=== PATIENT | female | born 1935 ===

== ENCOUNTER → 2016-08-30 | Outpatient (CLI) | payer MEDICARE, MEDICAID | LOC: BFHH 12:44 | DX: I21.3 ST elevation (STEMI) myocardial infarction of unspecified site (principal); I10 Essential (primary) hypertension; I50.9 Heart failure, unspecified ==

== ENCOUNTER → 2017-10-19 | Outpatient (CLI) | payer MEDICARE, MEDICAID | LOC: BFHH 09:36 | PROVIDERS: ATTEND Family Medicine | DX: D51.9 Vitamin B12 deficiency anemia, unspecified (principal); I48.91 Unspecified atrial fibrillation; E11.9 Type 2 diabetes mellitus without complications; I50.9 Heart failure, unspecified; I11.0 Hypertensive heart disease with heart failure; Z79.01 Long term (current) use of anticoagulants ==

== ENCOUNTER 2018-05-06 14:57 | Emergency (ER) | payer MEDICARE, MEDICAID ==
[2018-05-06 15:11] VITALS: TEMP 98
--- NOTE | 2018-05-06 15:34 | ED.PDOC ---
History of Present Illness - General Chief Complaint: Cardiovascular Problem Stated Complaint: BLE swelling Time Seen by Provider: 05/06/18 15:13 Source: RN notes reviewed, Vital Signs reviewed, EMS notes reviewed, family Additional Information: 82 YEAR OLD LADY WHO RESIDES AT [facility] BROUGHT HERE FOR EVALUATION OF [place] SWELLING OF BOTH LOWER EXTREMITIES SHE IS ON DIURETIC PATIENT DENIES CHEST PAIN SHORTNESS OF BREATH AT THIS TIME FAMILY THE DAUGHTER WITH HER WANT S TO RUE OUT ELECTROLYTE DISORDER - History of Present Illness Timing/Duration: 1 week Severity: mild Activities at Onset: none Prior Chest Pain/Cardiac Workup: heart attack Improving Factors: nothing Worsening Factors: nothing Allergies/Adverse Reactions: Allergies Hydromorphone [From Dilaudid] Allergy (Verified 05/06/18 15:14) Unknown Sulfa Antibiotics Allergy (Verified 05/06/18 15:14) Unknown Codeine Adverse Reaction (Verified 05/06/18 15:14) Other Itching Home Medications: Ambulatory Orders ALPRAZolam [Xanax] 0.25 mg PO BID 05/06/18 Amiodarone HCl [Amiodarone HCl] 200 mg PO DAILY 05/06/18 Clopidogrel Bisulfate [Plavix] 75 mg PO DAILY 05/06/18 Escitalopram [Lexapro] 10 mg PO DAILY 05/06/18 Escitalopram [Lexapro] 10 mg PO DAILY 05/06/18 Furosemide Tab [Lasix Tab] 40 mg PO .Q1400 05/06/18 Furosemide Tab [Lasix Tab] 60 mg PO DAILY 05/06/18 Insulin, Reg.(Human) [Insulin Regular A/S] 0 unit SUBCU ACHS PRN 05/06/18 Levothyroxine Sodium [Synthroid] 100 mcg PO DAILY 05/06/18 Metoprolol Tartrate [Lopressor] 25 mg PO DAILY 05/06/18 Potassium Chloride [Potassium Chloride ER] 8 meq PO BID 05/06/18 Ranolazine [Ranexa] 500 mg PO BID 05/06/18 Simvastatin [Simvastatin] 20 mg PO BEDTIME 05/06/18 Tramadol HCl [Tramadol HCl] 50 mg PO TID PRN 05/06/18 Warfarin Sodium [Warfarin Sodium] 1 mg PO .QEVENING 05/06/18 glipiZIDE [Glucotrol] 5 mg PO DAILY 05/06/18 Review of Systems - Review of Systems Constitutional: States: no symptoms reported EENTM: States: no symptoms reported Respiratory: States: no symptoms reported Cardiology: States: no symptoms reported Gastrointestinal/Abdominal: States: no symptoms reported Genitourinary: States: no symptoms reported Musculoskeletal: States: no symptoms reported Skin: States: no symptoms reported Neurological: States: no symptoms reported Endocrine: States: no symptoms reported Hematologic/Lymphatic: States: no symptoms reported Family Medical History - Family History Mother Family History: No Known Living Status: Cause of : Old age Physical Exam - Physical Exam General Appearance: Alert, Comfortable Eyes, Ears, Nose, Throat Exam: PERRL/EOMI, normal ENT inspection, TMs normal Neck: non-tender, full range of motion, supple Respiratory: chest non-tender, lungs clear, normal breath sounds Cardiovascular/Chest: normal peripheral pulses, regular rate, rhythm, no edema, JVD Gastrointestinal/Abdominal: normal bowel sounds, non tender, soft, no organomegaly Extremity: pedal edema, swelling 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 tested, no motor/sensory deficits, alert, normal mood/affect, oriented x 3 Skin Exam: normal color Progress - Results/Orders Results/Orders: Laboratory Tests 05/06/18 05/06/18 05/06/18 15:14 15:14 15:14 WBC 8.1 RBC 4.13 L Hgb 9.6 L Hct 30.9 L MCV 74.8 L MCH 23.2 L MCHC 30.9 L RDW 19.0 H Plt Count 253 MPV 8.1 Absolute Neuts (auto) 6.20 Absolute Lymphs (auto) 0.70 L Absolute Monos (auto) 1.10 H Absolute Eos (auto) 0.10 Absolute Basos (auto) 0.10 Neutrophils % 76.7 Lymphocytes % 8.0 L Monocytes % 13.1 H Eosinophils % 0.8 L Basophils % 1.4 PT 11.8 H INR 1.18 H PTT (SP) 24.9 Sodium 131 L Potassium 4.3 Chloride 90 L Carbon Dioxide 33 H Anion Gap 12.3 BUN 25 H Creatinine 1.35 H BUN/Creatinine Ratio 18.5 Random Glucose 304 H Serum Osmolality 278.5 Calcium 8.4 Total Bilirubin 0.9 AST 12 ALT 12 Alkaline Phosphatase 176 H B-Natriuretic Peptide Serum Total Protein 6.3 L Albumin 3.1 L Globulin 3.2 Albumin/Globulin Ratio 1.0 L Urine Color Urine Appearance Urine pH Ur Specific [place] Urine Protein Urine Glucose (UA) Urine Ketones Urine Blood Urine Nitrite Urine Bilirubin Urine Urobilinogen Ur Leukocyte Esterase Urine RBC Urine WBC Ur Epithelial Cells Urine Bacteria 05/06/18 05/06/18 15:15 16:20 WBC RBC Hgb Hct MCV MCH MCHC RDW Plt Count MPV Absolute Neuts (auto) Absolute Lymphs (auto) Absolute Monos (auto) Absolute Eos (auto) Absolute Basos (auto) Neutrophils % Lymphocytes % Monocytes % Eosinophils % Basophils % PT INR PTT (SP) Sodium Potassium Chloride Carbon Dioxide Anion Gap BUN Creatinine BUN/Creatinine Ratio Random Glucose Serum Osmolality Calcium Total Bilirubin AST ALT Alkaline Phosphatase B-Natriuretic Peptide 836.0 H* Serum Total Protein Albumin Globulin Albumin/Globulin Ratio Urine Color Yellow Urine Appearance Clear Urine pH 7.0 Ur Specific [place] 1.015 Urine Protein Trace Urine Glucose (UA) 100 H Urine Ketones Negative Urine Blood Moderate H Urine Nitrite Negative Urine Bilirubin Negative Urine Urobilinogen 1.0 Ur Leukocyte Esterase Small H Urine RBC 5-10 H Urine WBC 10-20 H Ur Epithelial Cells 3-5 Urine Bacteria Rare chest x ray no pulmonary edema ekg Afib contolled ventricular response no ischemia no infarction Departure - Departure Clinical Impression: Congestive heart failure, Iron deficiency anemia Time of Disposition: 17:04 Disposition: Discharge to SNF Departure Forms: ED Discharge - Pt. Copy, Patient Portal Self Enrollment Instructions: DI for Chest Pain Referrals: MITA LEONARD [Primary Care Provider] - 1-2 Weeks Home Medications: Ambulatory Orders ALPRAZolam [Xanax] 0.25 mg PO BID 05/06/18 Amiodarone HCl [Amiodarone HCl] 200 mg PO DAILY 05/06/18 Clopidogrel Bisulfate [Plavix] 75 mg PO DAILY 05/06/18 Escitalopram [Lexapro] 10 mg PO DAILY 05/06/18 Escitalopram [Lexapro] 10 mg PO DAILY 05/06/18 Furosemide Tab [Lasix Tab] 40 mg PO .Q1400 05/06/18 Furosemide Tab [Lasix Tab] 60 mg PO DAILY 05/06/18 Insulin, Reg.(Human) [Insulin Regular A/S] 0 unit SUBCU ACHS PRN 05/06/18 Levothyroxine Sodium [Synthroid] 100 mcg PO DAILY 05/06/18 Metoprolol Tartrate [Lopressor] 25 mg PO DAILY 05/06/18 Potassium Chloride [Potassium Chloride ER] 8 meq PO BID 05/06/18 Ranolazine [Ranexa] 500 mg PO BID 05/06/18 Simvastatin [Simvastatin] 20 mg PO BEDTIME 05/06/18 Tramadol HCl [Tramadol HCl] 50 mg PO TID PRN 05/06/18 Warfarin Sodium [Warfarin Sodium] 1 mg PO .QEVENING 05/06/18 glipiZIDE [Glucotrol] 5 mg PO DAILY 05/06/18
--- NOTE | 2018-05-06 16:07 | RAD ---
PROCEDURE: XR CHEST 1 VIEW HISTORY: chf COMPARISON: 03/29/2018 TECHNIQUE: Single projection of the chest was done. FINDINGS: There is stable position of the unipolar left-sided pacemaker wire . There are no discrete airspace infiltrates, pneumothoraces or pleural effusions. The pulmonary vascularity is normal. The cardiomediastinal silhouette is stable. IMPRESSION: There is no acute pleural-parenchymal process seen in the imaged lung muro. Stable cardiomegaly Electronically signed by: Nikhil Ware MD 05/06/2018 4:05 PM CDT Workstation: [id number]
[2018-05-06 16:29] VITALS: O2SAT 95
[2018-05-06 18:23] VITALS: BP 124/71
== END 2018-05-06 18:15 ==
LOC: ER 14:57
DX: I50.9 Heart failure, unspecified (principal); D50.9 Iron deficiency anemia, unspecified; Z79.4 Long term (current) use of insulin; Z79.01 Long term (current) use of anticoagulants; Z79.899 Other long term (current) drug therapy; Z91.81 History of falling